=== PATIENT | male | born 1955 | race Caucasian/White ===

== ENCOUNTER 2019-09-07 10:14 | Observation (INO) | payer OTHER ==
[2019-09-07] MEDS ORDERED: Metoprolol Tartrate 5 MG/5 ML SDV IVPUSH ONE (10:41)
--- NOTE | 2019-09-07 10:42 | EDM.PDOC ---
ED HPI GENERAL MEDICAL PROBLEM - General Chief Complaint: Chest Pain Stated Complaint: CHEST PAIN Time Seen by Provider: 09/07/19 10:42 Source of Information: Reports: Patient History Limitations: Reports: No Limitations - History of Present Illness INITIAL COMMENTS - FREE TEXT/NARRATIVE: pt arrived having intermitent regular tachcardia with a rate of 170. He has chest pressure but no actual chest pain. He is mildly sob. He has a history of reflux and when he has alot of trouble he has had a rapid heart rhythm. Onset: Today, Sudden Duration: Hour(s):, Other (pt has not had any extra stress present. ) Location: Reports: Chest Associated Symptoms: Reports: Other ( rapid heart beat. ) chest Pain Score (Numeric/FACES): 0 - Related Data Allergies Allergy/AdvReac Type Severity Reaction Status Date / Time No Known Allergies Allergy Verified 09/07/19 10:38 Home Meds: Home Meds Aspirin [Lo-Dose Aspirin EC] 81 mg PO DAILY 09/07/19 [History] Esomeprazole [NexIUM] 20 mg PO DAILY 09/07/19 [History] Fexofenadine [Holli] 180 mg PO DAILY 09/07/19 [History] Losartan Potassium 50 mg PO DAILY 09/07/19 [History] Pantoprazole [ProTONIX] 40 mg PO DAILY 09/07/19 [History] gemfibroziL [Gemfibrozil] 600 mg PO DAILY 09/07/19 [History] ED ROS GENERAL - Review of Systems Review Of Systems: See Below Constitutional: Reports: Weakness, Fatigue HEENT: Reports: No Symptoms Respiratory: Reports: Shortness of Breath Cardiovascular: Reports: Palpitations, Other (pt feels like his heart is racing. ) Endocrine: Reports: No Symptoms GI/Abdominal: Reports: No Symptoms, Other (pt has a history of reflux. ) : Reports: No Symptoms Musculoskeletal: Reports: No Symptoms Skin: Reports: No Symptoms Neurological: Reports: Dizziness, Weakness, Other (no definite chest pain. ) Psychiatric: Reports: No Symptoms ED EXAM, GENERAL - Physical Exam Exam: See Below Free Text/Narrative:: pt arrived with a heart rate of 177. He did not have actual chest pain but he did feel uneasy in his chest, He was not sob. Exam Limited By: Other (pt does give a history of reflux. He feels like he has rapid heart rates when he has reflux.) General Appearance: Alert, Anxious Ears: Normal TMs Nose: Normal Inspection Throat/Mouth: Normal Inspection Head: Atraumatic Neck: Normal Inspection Respiratory/Chest: No Respiratory Distress Cardiovascular: Regular Rate, Rhythm, Tachycardia, Other (pt had a rate of 177 on arrival. He did go in and out of this. ) GI/Abdominal: Soft, Non-Tender (Male) Exam: Deferred Rectal (Males) Exam: Deferred Back Exam: Normal Inspection Extremities: Normal Inspection Neurological: Alert, Oriented, Normal Cognition Psychiatric: Anxious Course - Vital Signs Last Recorded V/S: Last Vital Signs Temp 36.8 C 09/08/19 04:00 Pulse 62 09/08/19 02:00 Resp 19 09/08/19 06:00 BP 138/86 09/08/19 06:00 Pulse Ox 95 09/08/19 06:00 - Orders/Labs/Meds Orders: Active Orders 24 hr Category Date Time Status Patient Status [ADT] Routine ADT 09/07/19 14:02 Active Ambulate [RC] QID Care 09/07/19 14:02 Active Cardiac Monitoring [RC] Q6H Care 09/07/19 14:02 Active Height and Weight [RC] DAILY Care 09/07/19 14:02 Active Intake and Output [RC] QSHIFT Care 09/07/19 14:02 Active Notify Provider Vital Signs [RC] ASDIRECTED Care 09/07/19 14:02 Active Oxygen Therapy [RC] PRN Care 09/07/19 14:02 Active Up ad Rachel [RC] ASDIRECTED Care 09/07/19 14:02 Active Up to Chair [RC] QID Care 09/07/19 14:02 Active VTE/DVT Education [RC] Per Unit Routine Care 09/07/19 14:02 Active Vital Signs [RC] Q1H Care 09/07/19 14:02 Active 2 Gram Sodium Diet [DIET] Diet 09/07/19 Lunch Active Acetaminophen [Tylenol] Med 09/07/19 14:02 Active 650 mg PO Q4H PRN Aspirin [Halfprin] Med 09/08/19 09:00 Active 81 mg PO DAILY Diltiazem IR [Cardizem] Med 09/07/19 14:00 Active 30 mg PO Q6H Diltiazem [Cardizem] 100 mg Med 09/07/19 11:30 Active Sodium Chloride 0.9% [Normal Saline] 100 ml IV TITRATE Enoxaparin [Lovenox] Med 09/07/19 16:00 Active 40 mg SUBCUT Q24H Loratadine [Claritin] Med 09/07/19 21:00 Active 10 mg PO BEDTIME Ondansetron [Zofran] Med 09/07/19 14:02 Active 4 mg IV Q4H PRN Pantoprazole [ProTONIX] Med 09/07/19 16:30 Active 40 mg PO BIDAC Sodium Chloride 0.9% [Saline Flush] Med 09/07/19 14:02 Active 10 ml FLUSH ASDIRECTED PRN gemfibroziL [Lopid] Med 09/08/19 09:00 Active 600 mg PO DAILY polyethylene glycoL 3350 [MiraLAX] Med 09/07/19 14:02 Active 17 gm PO DAILY PRN Saline Lock Insert [OM.PC] Routine Oth 09/07/19 14:02 Ordered Resuscitation Status Routine Resus Stat 09/07/19 13:19 Ordered EKG 12 Lead [EK] Routine Ther 09/07/19 10:42 Stop Req Medication Orders Acetaminophen (Tylenol) 650 mg PO Q4H PRN PRN Reason: Pain (Mild 1-3)/fever Aspirin (Halfprin) 81 mg PO DAILY ROBERTO CARLOS Diltiazem HCl (Cardizem) 30 mg PO Q6H ROBERTO CARLOS Last Admin: 09/08/19 01:26 Dose: 30 mg Documented by: Admin: 09/07/19 20:17 Dose: 30 mg Documented by: Admin: 09/07/19 14:39 Dose: 30 mg Documented by: REYNA Enoxaparin Sodium (Lovenox) 40 mg SUBCUT Q24H ROBERTO CARLOS Last Admin: 09/07/19 17:11 Dose: 40 mg Documented by: REYNA Gemfibrozil (Lopid) 600 mg PO DAILY ROBERTO CARLOS Diltiazem HCl 100 mg/ Sodium (Chloride) 100 mls @ 5 mls/hr IV TITRATE ROBERTO CARLOS; Protocol Last Titration: 09/08/19 04:26 Dose: 5 mg/hr, 5 mls/hr Documented by: Admin: 09/08/19 01:26 Dose: 10 mg/hr, 10 mls/hr Documented by: Titration: 09/08/19 01:26 Dose: 10 mg/hr, 10 mls/hr Documented by: Titration: 09/07/19 23:46 Dose: 10 mg/hr, 10 mls/hr Documented by: Titration: 09/07/19 23:19 Dose: 5 mg/hr, 5 mls/hr Documented by: Titration: 09/07/19 22:05 Dose: 0 mg/hr, 0 mls/hr Documented by: Titration: 09/07/19 16:20 Dose: 5 mg/hr, 5 mls/hr Documented by: Titration: 09/07/19 13:09 Dose: 10 mg/hr, 10 mls/hr Documented by: Admin: 09/07/19 11:42 Dose: 5 mg/hr, 5 mls/hr Documented by: [id number] Loratadine (Claritin) 10 mg PO BEDTIME [facility] Last Admin: 09/07/19 20:17 Dose: 10 mg Documented by: AIMEE Ondansetron HCl (Zofran) 4 mg IV Q4H PRN PRN Reason: Nausea/Vomiting Pantoprazole Sodium (Protonix) 40 mg PO BIDAC [facility] Last Admin: 09/07/19 17:11 Dose: 40 mg Documented by: REYNA Polyethylene Glycol (Miralax) 17 gm PO DAILY PRN PRN Reason: Constipation Sodium Chloride (Saline Flush) 10 ml FLUSH ASDIRECTED PRN PRN Reason: Keep Vein Open Labs: Laboratory Tests 09/07/19 09/07/19 09/07/19 Range/Units 10:39 10:47 10:47 WBC 6.2 (4.5-11.0) K/uL RBC 5.92 H (4.30-5.90) M/uL Hgb 16.9 H (12.0-15.0) g/dL Hct 49.5 (40.0-54.0) % MCV 84 (80-98) fL MCH 29 (27-31) pg MCHC 34 (32-36) % Plt Count 222 (150-400) K/uL Neut % (Auto) 35 L (36-66) % Lymph % (Auto) 53 H (24-44) % Borden % (Auto) 11 H (2-6) % Eos % (Auto) 1 L (2-4) % Baso % (Auto) 1 (0-1) % Sodium 143 (140-148) mmol/L Potassium 4.7 (3.6-5.2) mmol/L Chloride 106 (100-108) mmol/L Carbon Dioxide 27 (21-32) mmol/L Anion Gap 10.2 (5.0-14.0) mmol/L BUN 24 H (7-18) mg/dL Creatinine 1.4 H (0.8-1.3) mg/dL Est Cr Clr Drug Dosing 60.24 mL/min Estimated GFR (MDRD) 51 L (>60) Glucose 111 H (74-106) mg/dL Calcium 8.8 (8.5-10.1) mg/dL Magnesium (1.8-2.4) mg/dL Total Bilirubin 0.5 (0.2-1.0) mg/dL AST 39 H (15-37) U/L ALT 49 (12-78) U/L Alkaline Phosphatase 59 (46-116) U/L Troponin I < 0.017 (0.000-0.056) ng/mL Total Protein 7.4 (6.4-8.2) g/dL Albumin 4.2 (3.4-5.0) g/dL Globulin 3.2 (2.3-3.5) g/dL Albumin/Globulin Ratio 1.3 (1.2-2.2) TSH, Ultra Sensitive (0.358-3.740) uIU/mL Urine Opiates Screen (NEGATIVE) Ur Oxycodone Screen (NEGATIVE) Urine Methadone Screen (NEGATIVE) Ur Propoxyphene Screen (NEGATIVE) Ur Barbiturates Screen (NEGATIVE) Ur Tricyclics Screen (NEGATIVE) Ur Phencyclidine Scrn (NEGATIVE) Ur Amphetamine Screen (NEGATIVE) U Methamphetamines Scrn (NEGATIVE) Urine MDMA Screen (NEGATIVE) U Benzodiazepines Scrn (NEGATIVE) U Cocaine Metab Screen (NEGATIVE) U Marijuana (THC) Screen (NEGATIVE) 09/07/19 09/07/19 09/07/19 Range/Units 10:47 11:40 12:07 WBC (4.5-11.0) K/uL RBC (4.30-5.90) M/uL Hgb (12.0-15.0) g/dL Hct (40.0-54.0) % MCV (80-98) fL MCH (27-31) pg MCHC (32-36) % Plt Count (150-400) K/uL Neut % (Auto) (36-66) % Lymph % (Auto) (24-44) % Borden % (Auto) (2-6) % Eos % (Auto) (2-4) % Baso % (Auto) (0-1) % Sodium (140-148) mmol/L Potassium (3.6-5.2) mmol/L Chloride (100-108) mmol/L Carbon Dioxide (21-32) mmol/L Anion Gap (5.0-14.0) mmol/L BUN (7-18) mg/dL Creatinine (0.8-1.3) mg/dL Est Cr Clr Drug Dosing mL/min Estimated GFR (MDRD) (>60) Glucose (74-106) mg/dL Calcium (8.5-10.1) mg/dL Magnesium 2.5 H (1.8-2.4) mg/dL Total Bilirubin (0.2-1.0) mg/dL AST (15-37) U/L ALT (12-78) U/L Alkaline Phosphatase (46-116) U/L Troponin I (0.000-0.056) ng/mL Total Protein (6.4-8.2) g/dL Albumin (3.4-5.0) g/dL Globulin (2.3-3.5) g/dL Albumin/Globulin Ratio (1.2-2.2) TSH, Ultra Sensitive 3.527 (0.358-3.740) uIU/mL Urine Opiates Screen Negative (NEGATIVE) Ur Oxycodone Screen Negative (NEGATIVE) Urine Methadone Screen Negative (NEGATIVE) Ur Propoxyphene Screen Negative (NEGATIVE) Ur Barbiturates Screen Negative (NEGATIVE) Ur Tricyclics Screen Presumptive positive H (NEGATIVE) Ur Phencyclidine Scrn Negative (NEGATIVE) Ur Amphetamine Screen Negative (NEGATIVE) U Methamphetamines Scrn Presumptive positive H (NEGATIVE) Urine MDMA Screen Negative (NEGATIVE) U Benzodiazepines Scrn Negative (NEGATIVE) U Cocaine Metab Screen Negative (NEGATIVE) U Marijuana (THC) Screen Negative (NEGATIVE) Meds: Medications Generic Name Dose Route Start Last Admin Trade Name [place] PRN Reason Stop Dose Admin Acetaminophen 650 mg 09/07/19 14:02 Tylenol PO Q4H PRN Pain (Mild 1-3)/fever Aspirin 81 mg 09/08/19 09:00 Halfprin PO DAILY ROBERTO CARLOS Diltiazem HCl 30 mg 09/07/19 14:00 09/08/19 01:26 Cardizem PO 30 mg Q6H ROBERTO CARLOS Administration Enoxaparin Sodium 40 mg 09/07/19 16:00 09/07/19 17:11 Lovenox SUBCUT 40 mg Q24H ROBERTO CARLOS Administration Gemfibrozil 600 mg 09/08/19 09:00 Lopid PO DAILY ROBERTO CARLOS Diltiazem HCl 100 mg/ Sodium 100 mls @ 5 mls/hr 09/07/19 11:30 09/08/19 04:26 Chloride IV 5 mg/hr TITRATE ROBERTO CARLOS 5 mls/hr Titration Protocol 5 MG/HR Loratadine 10 mg 09/07/19 21:00 09/07/19 20:17 Claritin PO 10 mg BEDTIME ROBERTO CARLOS Administration Ondansetron HCl 4 mg 09/07/19 14:02 Zofran IV Q4H PRN Nausea/Vomiting Pantoprazole Sodium 40 mg 09/07/19 16:30 09/07/19 17:11 Protonix PO 40 mg BIDAC ROBERTO CARLOS Administration Polyethylene Glycol 17 gm 09/07/19 14:02 Miralax PO DAILY PRN Constipation Sodium Chloride 10 ml 09/07/19 14:02 Saline Flush FLUSH ASDIRECTED PRN Keep Vein Open Discontinued Medications Generic Name Dose Route Start Last Admin Trade Name [place] PRN Reason Stop Dose Admin Diltiazem HCl 10 mg 09/07/19 11:25 09/07/19 11:33 Diltiazem IVPUSH 09/07/19 11:26 10 mg ONETIME ONE Administration Diltiazem HCl Confirm 09/08/19 00:06 09/08/19 01:26 Diltiazem Administered 09/08/19 00:07 Not Given Dose 25 mg .ROUTE .STK-MED ONE Sodium Chloride 1,000 mls @ 250 mls/hr 09/07/19 10:45 09/07/19 10:49 Normal Saline IV 250 mls/hr ASDIRECTED ROBERTO CARLOS Administration Sodium Chloride 1,000 mls @ 999 mls/hr 09/07/19 12:00 09/07/19 13:14 Normal Saline IV 999 mls/hr ASDIRECTED ROBERTO CARLOS Administration Metoprolol Tartrate 5 mg 09/07/19 10:41 09/07/19 10:48 Lopressor IVPUSH 09/07/19 10:42 5 mg ONETIME ONE Administration Pantoprazole Sodium 40 mg 09/07/19 10:46 09/07/19 10:58 Protonix Iv IVPUSH 09/07/19 10:47 40 mg ONETIME ONE Administration - Re-Assessments/Exams Free Text/Narrative Re-Assessment/Exam: 09/07/19 11:59 pt was gven lopressor 5 mg iv to see if that would stablize the rhythm and it did not. He was then given cardizem 10 mg iv and a drip was hung and he is doing much better. He has a normal mag. He does appear dry and he will be hydrated. Dr Dallas will admit and observe the pt. b Departure - Departure Time of Disposition: 04:00 Disposition: Admitted As Inpatient 65 Condition: Fair Clinical Impression: Cardiac arrhythmia, Dehydration - My Orders Last 24 Hours: My Active Orders 09/07/19 10:42 EKG 12 Lead [EK] Routine 09/07/19 11:30 Diltiazem [Cardizem] 100 mg Sodium Chloride 0.9% [Normal Saline] 100 ml IV TITRATE - Assessment/Plan Last 24 Hours: My Active Orders 09/07/19 10:42 EKG 12 Lead [EK] Routine 09/07/19 11:30 Diltiazem [Cardizem] 100 mg Sodium Chloride 0.9% [Normal Saline] 100 ml IV TITRATE
[2019-09-07] MEDS ORDERED: Sodium Chloride 0.9% 1,000 ML IV SCH ×2 (10:45→12:00)
[2019-09-07] MEDS ORDERED: Pantoprazole 40 MG Vial IVPUSH ONE (10:46)
[2019-09-07] MEDS ORDERED: Diltiazem 25 MG/5 ML SDV IVPUSH ONE (11:25)
[2019-09-07] MEDS: Diltiazem 100 MG in Sodium Chloride 0.9% 100 ML IV SCH (11:42)
--- NOTE | 2019-09-07 12:01 | CR ---
CHEST: 09/07/2019 11:21 AM CLINICAL HISTORY:Tachycardia COMPARISON:None FINDINGS: The heart size, pulmonary vascularity and hilar structures are normal. No infiltrate effusion or pneumothorax is seen. IMPRESSION: No acute cardiopulmonary process.
--- NOTE | 2019-09-07 13:28 | PCM.HP.2 ---
H&P History of Present Illness - General Date of Service: 09/07/19 Admit Problem/Dx: Admission Diagnosis/Problem Admission Diagnosis/Problem Tachycardia Source of Information: Patient, Family, Provider, RN Notes Reviewed History Limitations: Reports: No Limitations - History of Present Illness Initial Comments - Free Text/Narative: Mr. 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 He has a past history of episodic rapid heart rate, but this has not bothered him much over the past few months. He is in [place] vacationing over the past 2-1/2 weeks and has noted increased difficulty with esophageal reflux. In the past he has associated the reflux with episodes of tachycardia. Episodes of occurred over the past few days and he is noted symptoms of decreased exercise tolerance, shortness of breath, weakness, and lightheadedness. Because of persistent symptoms he presented to the emergency department today. On presentation was noted to be in a narrow complex tachycardia with a rate of 170. This appeared to represent an AV kenisha reentrant tachycardia. He received beta-jack initially which did not provide any improvement. He was then given a dose of IV diltiazem and started on a continuous infusion of diltiazem with good result and conversion to sinus rhythm. And in sinus rhythm since that time. He denies any symptoms of chest pain but has experienced chest pressure. He did have a urinary angiogram within the past few years that showed only very mild coronary artery disease. Initial troponin level is within normal range. - Related Data Allergies/Adverse Reactions: Allergies Allergy/AdvReac Type Severity Reaction Status Date / Time No Known Allergies Allergy Verified 09/07/19 10:38 Home Medications: Home Meds Aspirin [Lo-Dose Aspirin EC] 81 mg PO DAILY 09/07/19 [History] Esomeprazole [NexIUM] 20 mg PO DAILY 09/07/19 [History] Fexofenadine [Holli] 180 mg PO DAILY 09/07/19 [History] Losartan Potassium 50 mg PO DAILY 09/07/19 [History] Pantoprazole [ProTONIX] 40 mg PO DAILY 09/07/19 [History] gemfibroziL [Gemfibrozil] 600 mg PO DAILY 09/07/19 [History] Past Medical History Cardiovascular History: Reports: High Cholesterol, Hypertension - Past Surgical History Other Cardiovascular Surgeries/Procedures: cardiac cath GI Surgical History: Reports: Hernia Repair/Other Male Surgical History: Reports: Kidney Stone Extraction, Lithotripsy ([facility]) Other Male Surgeries/Procedures: fistual repair Social & Family History - Tobacco Use Smoking Status *Q: Never Smoker H&P Review of Systems - Review of Systems: Review Of Systems: See Below General: Reports: Weakness, Fatigue HEENT: Reports: No Symptoms Pulmonary: Reports: Shortness of Breath. Denies: Wheezing, Pleuritic Chest Pain, Cough, Sputum, Hemoptysis Cardiovascular: Reports: Palpitations, Dyspnea on Exertion, Lightheadedness. Denies: Chest Pain, Orthopnea, PND, Edema, Syncope Gastrointestinal: Reports: No Symptoms Genitourinary: Reports: No Symptoms Musculoskeletal: Reports: No Symptoms Skin: Reports: No Symptoms Psychiatric: Reports: No Symptoms Neurological: Reports: No Symptoms Hematologic/Lymphatic: Reports: No Symptoms Immunologic: Reports: No Symptoms Exam - Exam Exam: See Below - Vital Signs Vital Signs: Last Vital Signs Temp 97.6 F 09/07/19 10:41 Pulse 151 H 09/07/19 11:24 Resp 13 09/07/19 11:24 BP 124/77 09/07/19 11:24 Pulse Ox 93 L 09/07/19 11:24 Weight: 240 lb - Exam Quality Assessment: DVT Prophylaxis General: Alert, Oriented, Cooperative, Mild Distress HEENT: Conjunctiva Clear, Hearing Intact, Mucosa Moist & Mears, Normal Nasal Septum, Posterior Pharynx Clear, Pupils Equal Neck: Supple, Trachea Midline, +2 Carotid Pulse wo Bruit Lungs: Clear to Auscultation, Normal Respiratory Effort, Decreased Breath Sounds Cardiovascular: Regular Rate, Regular Rhythm, Normal S1, Normal S2. No: Systolic Murmur, Diastolic Murmur GI/Abdominal Exam: Soft, Non-Tender, No Organomegaly, No Distention Back Exam: Normal Inspection, Full Range of Motion Extremities: Non-Tender, No Pedal Edema Skin: Warm, Dry, Intact Neurological: Cranial Nerves Intact, Strength Equal Bilateral, Normal Speech, Normal Tone, Sensation Intact. No: Focal Deficit Neuro Extensive - Mental Status: Alert, Oriented x3, Normal Mood/Affect, Normal Cognition, Memory Intact - Patient Data Lab Results Last 24 hrs: Laboratory Results - last 24 hr 09/07/19 09/07/19 09/07/19 Range/Units 10:39 10:47 10:47 WBC 6.2 (4.5-11.0) K/uL RBC 5.92 H (4.30-5.90) M/uL Hgb 16.9 H (12.0-15.0) g/dL Hct 49.5 (40.0-54.0) % MCV 84 (80-98) fL MCH 29 (27-31) pg MCHC 34 (32-36) % Plt Count 222 (150-400) K/uL Neut % (Auto) 35 L (36-66) % Lymph % (Auto) 53 H (24-44) % Wells % (Auto) 11 H (2-6) % Eos % (Auto) 1 L (2-4) % Baso % (Auto) 1 (0-1) % Sodium 143 (140-148) mmol/L Potassium 4.7 (3.6-5.2) mmol/L Chloride 106 (100-108) mmol/L Carbon Dioxide 27 (21-32) mmol/L Anion Gap 10.2 (5.0-14.0) mmol/L BUN 24 H (7-18) mg/dL Creatinine 1.4 H (0.8-1.3) mg/dL Est Cr Clr Drug Dosing 60.24 mL/min Estimated GFR (MDRD) 51 L (>60) Glucose 111 H (74-106) mg/dL Calcium 8.8 (8.5-10.1) mg/dL Magnesium (1.8-2.4) mg/dL Total Bilirubin 0.5 (0.2-1.0) mg/dL AST 39 H (15-37) U/L ALT 49 (12-78) U/L Alkaline Phosphatase 59 (46-116) U/L Troponin I < 0.017 (0.000-0.056) ng/mL Total Protein 7.4 (6.4-8.2) g/dL Albumin 4.2 (3.4-5.0) g/dL Globulin 3.2 (2.3-3.5) g/dL Albumin/Globulin Ratio 1.3 (1.2-2.2) TSH, Ultra Sensitive (0.358-3.740) uIU/mL Urine Opiates Screen (NEGATIVE) Ur Oxycodone Screen (NEGATIVE) Urine Methadone Screen (NEGATIVE) Ur Propoxyphene Screen (NEGATIVE) Ur Barbiturates Screen (NEGATIVE) Ur Tricyclics Screen (NEGATIVE) Ur Phencyclidine Scrn (NEGATIVE) Ur Amphetamine Screen (NEGATIVE) U Methamphetamines Scrn (NEGATIVE) Urine MDMA Screen (NEGATIVE) U Benzodiazepines Scrn (NEGATIVE) U Cocaine Metab Screen (NEGATIVE) U Marijuana (THC) Screen (NEGATIVE) 09/07/19 09/07/19 09/07/19 Range/Units 10:47 11:40 12:07 WBC (4.5-11.0) K/uL RBC (4.30-5.90) M/uL Hgb (12.0-15.0) g/dL Hct (40.0-54.0) % MCV (80-98) fL MCH (27-31) pg MCHC (32-36) % Plt Count (150-400) K/uL Neut % (Auto) (36-66) % Lymph % (Auto) (24-44) % Wells % (Auto) (2-6) % Eos % (Auto) (2-4) % Baso % (Auto) (0-1) % Sodium (140-148) mmol/L Potassium (3.6-5.2) mmol/L Chloride (100-108) mmol/L Carbon Dioxide (21-32) mmol/L Anion Gap (5.0-14.0) mmol/L BUN (7-18) mg/dL Creatinine (0.8-1.3) mg/dL Est Cr Clr Drug Dosing mL/min Estimated GFR (MDRD) (>60) Glucose (74-106) mg/dL Calcium (8.5-10.1) mg/dL Magnesium 2.5 H (1.8-2.4) mg/dL Total Bilirubin (0.2-1.0) mg/dL AST (15-37) U/L ALT (12-78) U/L Alkaline Phosphatase (46-116) U/L Troponin I (0.000-0.056) ng/mL Total Protein (6.4-8.2) g/dL Albumin (3.4-5.0) g/dL Globulin (2.3-3.5) g/dL Albumin/Globulin Ratio (1.2-2.2) TSH, Ultra Sensitive 3.527 (0.358-3.740) uIU/mL Urine Opiates Screen Negative (NEGATIVE) Ur Oxycodone Screen Negative (NEGATIVE) Urine Methadone Screen Negative (NEGATIVE) Ur Propoxyphene Screen Negative (NEGATIVE) Ur Barbiturates Screen Negative (NEGATIVE) Ur Tricyclics Screen Presumptive positive H (NEGATIVE) Ur Phencyclidine Scrn Negative (NEGATIVE) Ur Amphetamine Screen Negative (NEGATIVE) U Methamphetamines Scrn Presumptive positive H (NEGATIVE) Urine MDMA Screen Negative (NEGATIVE) U Benzodiazepines Scrn Negative (NEGATIVE) U Cocaine Metab Screen Negative (NEGATIVE) U Marijuana (THC) Screen Negative (NEGATIVE) Result Diagrams: 09/07/19 10:39 09/07/19 10:47 Sepsis Event Note - Evaluation Sepsis Screening Result: No Definite Risk - Focused Exam Vital Signs: Vital Signs Temp Pulse Pulse Resp BP BP Pulse Ox 09/07/19 11:24 151 H 13 124/77 93 L 09/07/19 10:48 172 H 119/71 09/07/19 10:46 167 H 13 119/71 95 09/07/19 10:41 97.6 F 170 H 14 119/71 100 Date Exam was Performed: 09/07/19 Time Exam was Performed: 13:22 *Q Meaningful Use (ADM) - VTE Risk Assess *Q Each Risk Factor Represents 1 Point: Obesity ( BMI > 25 kg/m2) Total Score 1 Point Risk Factors: 1 Each Risk Factor Represents 2 Points: Age 60 - 74 Years Total Score 2 Point Risk Factors: 2 Each Risk Factor Represents 3 Points: None Total Score 3 Point Risk Factors: 0 Each Risk Factor Represents 5 Points: None Total Score 5 Point Risk Factors: 0 Venous Thromboembolism Risk Factor Score *Q: 3 Problem List Initiated/Reviewed/Updated: Yes Orders Last 24hrs: Active Orders 24 hr Category Date Time Status Patient Status Manage Transfer [TRANSFER] Routine ADT 09/07/19 13:16 Active EKG Documentation Completion [RC] ASDIRECTED Care 09/07/19 10:42 Active Diltiazem [Cardizem] 100 mg Med 09/07/19 11:30 Active Sodium Chloride 0.9% [Normal Saline] 100 ml IV TITRATE Sodium Chloride 0.9% [Normal Saline] 1,000 ml Med 09/07/19 10:45 Active IV ASDIRECTED Sodium Chloride 0.9% [Normal Saline] 1,000 ml Med 09/07/19 12:00 Active IV ASDIRECTED Resuscitation Status Routine Resus Stat 09/07/19 13:19 Ordered EKG 12 Lead [EK] Routine Ther 09/07/19 10:42 Ordered Medication Orders Sodium Chloride (Normal Saline) 1,000 mls @ 250 mls/hr IV ASDIRECTED ROBERTO CARLOS Last Admin: 09/07/19 10:49 Dose: 250 mls/hr Documented by: ALEXI Diltiazem HCl 100 mg/ Sodium (Chloride) 100 mls @ 5 mls/hr IV TITRATE ROBERTO CARLOS; Protocol Last Titration: 09/07/19 13:09 Dose: 10 mg/hr, 10 mls/hr Documented by: Admin: 09/07/19 11:42 Dose: 5 mg/hr, 5 mls/hr Documented by: MICHAEL Sodium Chloride (Normal Saline) 1,000 mls @ 999 mls/hr IV ASDIRECTED ROBERTO CARLOS Last Admin: 09/07/19 13:14 Dose: 999 mls/hr Documented by: ALEXI Assessment/Plan Comment:: ASSESSMENT AND PLAN AV KENISHA REENTRANT TACHYCARDIA-history of episodic rapid heart rate in the past although not for some time. In the past as well as this time seems to be associated with worsening of his esophageal reflux. -Continue IV diltiazem continuous infusion -Transition to oral diltiazem 30 mg every 6 hours -Transition to long-acting oral diltiazem in a.m. ESOPHAGEAL REFLUX -Increase oral Protonix to 40 mg twice daily MAINTENANCE ISSUES -DVT prophylaxis; Lovenox 40 mg subcu daily -GI prophylaxis; Protonix as above -Valenzuela catheter; not indicated -Nutrition; 2 g sodium diet -Nicotine dependence; not required CODE STATUS-FULL CODE ADMISSION STATUS-this patient will be admitted to observation status, expect no more than a one night hospital stay for evaluation and management of problems as outlined above. DISPOSITION-anticipate discharge to home after the hospital stay. PRIMARY CARE PROVIDER-he is from [place] and receives his primary health care there - Mortality Measure Prognosis:: Good
[2019-09-07] MEDS ORDERED: Polyethylene Glycol 3350 Powder 17 GM Packet PO PRN (14:02)
[2019-09-07] MEDS ORDERED: Acetaminophen 325 MG Tab PO PRN (14:02)
[2019-09-07] MEDS ORDERED: Ondansetron 4 MG/2 ML SDV IV PRN (14:02)
[2019-09-07] MEDS ORDERED: Sodium Chloride 0.9% 10 ML Syringe FLUSH PRN (14:02)
[2019-09-07] MEDS: Diltiazem IR 30 MG Tab PO SCH ×2 (14:39→20:17)
[2019-09-07] MEDS ORDERED: Enoxaparin 40 MG/0.4 ML Syringe SUBCUT SCH (16:00)
[2019-09-07] MEDS: Pantoprazole 40 MG Tab.CR PO SCH (17:11)
[2019-09-07] MEDS ORDERED: Loratadine 10 MG Tab PO SCH (21:00)
[2019-09-08] MEDS ORDERED: Diltiazem 25 MG/5 ML SDV ONE (00:06)
[2019-09-08] MEDS: Diltiazem 100 MG in Sodium Chloride 0.9% 100 ML IV SCH (01:26)
[2019-09-08] MEDS: Diltiazem IR 30 MG Tab PO SCH ×2 (01:26→07:39)
[2019-09-08] MEDS: Pantoprazole 40 MG Tab.CR PO SCH (07:39)
[2019-09-08] MEDS: Gemfibrozil 600 MG Tab PO SCH ×2 (07:40→09:05)
[2019-09-08] MEDS: Aspirin 81 MG Tab.EC PO SCH ×2 (07:40→09:05)
[2019-09-08] MEDS ORDERED: Diltiazem 180 MG Cap.CD PO SCH (09:00)
--- NOTE | 2019-09-08 12:16 | PCM.DCSUM1 ---
Discharge Summary - Hospital Course Brief History: Mr. Dyer is a 63-year-old gentleman who was admitted to observation status through the emergency department with weakness, shortness of breath, lightheadedness, secondary to paroxysmal AV kenisha reentrant tachycardia. - Discharge Data Discharge Date: 09/08/19 Discharge Disposition: Home, Self-Care 01 Condition: Fair - Referral to Home Health Primary Care Physician: PCP None - Discharge Diagnosis/Problem(s) (1) Atrioventricular kenisha re-entry tachycardia SNOMED Code(s): 924956123, [id number], [id number] ICD Code: I47.1 - SUPRAVENTRICULAR TACHYCARDIA Status: Acute Current Visit: Yes - Patient Summary/Data Hospital Course: Mr. 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 He has a past history of episodic rapid heart rate, but this has not bothered him much over the past few months. He is in [place] [facility] over the past 2-1/2 weeks and has noted increased difficulty with esophageal reflux. In the past he has associated the reflux with episodes of tachycardia. Episodes of occurred over the past few days and he has noted symptoms of decreased exercise tolerance, shortness of breath, weakness, and lightheadedness. Because of persistent symptoms he presented to the emergency department. On presentation was noted to be in a narrow complex tachycardia with a rate of 170. This appeared to represent an AV kenisha reentrant tachycardia. He received beta-jack initially which did not provide any improvement. He was then given a dose of IV diltiazem and started on a continuous infusion of diltiazem with good result and conversion to sinus rhythm. He has remained in sinus rhythm since that time. He denies any s ymptoms of chest pain but has experienced chest pressure. He did have a coronary angiogram within the past few years that showed only very mild coronary artery disease. Troponin level was within normal range. On admission he was continued on the continuous IV infusion of diltiazem. During this period of time he was started on oral diltiazem 30 mg every 6 hours. Following morning this was transitioned to long-acting oral diltiazem 180 mg daily. He was taken off of the IV diltiazem infusion and over the next several hours remained in sinus rhythm with good rate control. He will be discharged home with long- acting diltiazem 180 mg daily. His losartan will be held because of the addition of diltiazem to current regimen. His dose of Protonix was increased to 40 mg twice daily because of his recent difficulty with esophageal reflux. He will remain on the increased dose until he is able to see his primary care provider for follow-up. Records will be copied for the patient to bring with him back to [place]. Activity will be as tolerated and he will resume his usual diet. Follow-up appointment will be made with his primary care provider within 1 week. Consider referral to EP cardiology for further evaluation and management of his tachycardia. - Patient Instructions Diet: Usual Diet as Tolerated Diet, Other: Decrease caffeine intake Activity: As Tolerated Other/Special Instructions: Schedule follow-up appointment with primary care provider within 1 week. - Discharge Plan *PRESCRIPTION DRUG MONITORING PROGRAM REVIEWED*: Not Applicable *COPY OF PRESCRIPTION DRUG MONITORING REPORT IN PATIENT SILVERIO: Not Applicable Prescriptions/Med Rec: Diltiazem HCl [Diltiazem 24Hr Cd] 180 mg PO DAILY #30 cap.er.24h Pantoprazole [ProTONIX] 40 mg PO BIDAC #10 tab.cr Home Medications: Home Meds Aspirin [Lo-Dose Aspirin EC] 81 mg PO DAILY 09/07/19 [History] Fexofenadine [Holli] 180 mg PO DAILY 09/07/19 [History] gemfibroziL [Gemfibrozil] 600 mg PO DAILY 09/07/19 [History] Diltiazem HCl [Diltiazem 24Hr Cd] 180 mg PO DAILY #30 cap.er.24h 09/08/19 [Rx] Pantoprazole [ProTONIX] 40 mg PO BIDAC #10 tab.cr 09/08/19 [Rx] - Discharge Summary/Plan Comment DC Time >30 min.: No - Patient Data Vitals - Most Recent: Last Vital Signs Temp 96.6 F L 09/08/19 07:48 Pulse 65 09/08/19 11:00 Resp 19 09/08/19 11:00 BP 132/82 09/08/19 11:00 Pulse Ox 95 09/08/19 11:00 Weight - Most Recent: 246 lb I&O - Last 24 hours: Intake & Output 09/07/19 09/08/19 09/08/19 22:59 06:59 14:59 Intake Total 1319 655 Output Total 886 4950 400 Balance 439 995 -400 Lab Results - Last 24 hrs: Laboratory Results - last 24 hr 09/07/19 09/08/19 09/08/19 Range/Units 12:07 05:02 09:21 Sodium 140 (140-148) mmol/L Potassium 4.2 (3.6-5.2) mmol/L Chloride 103 (100-108) mmol/L Carbon Dioxide 27 (21-32) mmol/L Anion Gap 9.6 (5.0-14.0) mmol/L BUN 19 H (7-18) mg/dL Creatinine 1.2 (0.8-1.3) mg/dL Est Cr Clr Drug Dosing 70.28 mL/min Estimated GFR (MDRD) > 60 (>60) Glucose 128 H (74-106) mg/dL Calcium 8.5 (8.5-10.1) mg/dL Magnesium 2.1 (1.8-2.4) mg/dL Urine Opiates Screen Negative Negative (NEGATIVE) Ur Oxycodone Screen Negative Negative (NEGATIVE) Urine Methadone Screen Negative Negative (NEGATIVE) Ur Propoxyphene Screen Negative Negative (NEGATIVE) Ur Barbiturates Screen Negative Negative (NEGATIVE) Ur Tricyclics Screen Presumptive positive H Positive H (NEGATIVE) Ur Phencyclidine Scrn Negative Negative (NEGATIVE) Ur Amphetamine Screen Negative Negative (NEGATIVE) U Methamphetamines Scrn Presumptive positive H Negative (NEGATIVE) Urine MDMA Screen Negative Negative (NEGATIVE) U Benzodiazepines Scrn Negative Negative (NEGATIVE) U Cocaine Metab Screen Negative Negative (NEGATIVE) U Marijuana (THC) Screen Negative Negative (NEGATIVE) Med Orders - Current: Current Medications Acetaminophen (Tylenol) 650 mg PO Q4H PRN PRN Reason: Pain (Mild 1-3)/fever Aspirin (Halfprin) 81 mg PO DAILY [facility] Last Admin: 09/08/19 09:05 Dose: Not Given Documented by: Diltiazem HCl (Cardizem Cd) 180 mg PO DAILY [facility] Last Admin: 09/08/19 08:39 Dose: 180 mg Documented by: Enoxaparin Sodium (Lovenox) 40 mg SUBCUT Q24H [facility] Last Admin: 09/07/19 17:11 Dose: 40 mg Documented by: Gemfibrozil (Lopid) 600 mg PO DAILY [facility] Last Admin: 09/08/19 09:05 Dose: Not Given Documented by: Diltiazem HCl 100 mg/ Sodium (Chloride) 100 mls @ 5 mls/hr IV TITRATE [facility]; Protocol Last Titration: 09/08/19 08:50 Dose: 0 mg/hr, 0 mls/hr Documented by: Loratadine (Claritin) 10 mg PO BEDTIME [facility] Last Admin: 09/07/19 20:17 Dose: 10 mg Documented by: Ondansetron HCl (Zofran) 4 mg IV Q4H PRN PRN Reason: Nausea/Vomiting Pantoprazole Sodium (Protonix) 40 mg PO BIDAC [facility] Last Admin: 09/08/19 07:39 Dose: 40 mg Documented by: Polyethylene Glycol (Miralax) 17 gm PO DAILY PRN PRN Reason: Constipation Sodium Chloride (Saline Flush) 10 ml FLUSH ASDIRECTED PRN PRN Reason: Keep Vein Open Discontinued Medications Diltiazem HCl (Diltiazem) 10 mg IVPUSH ONETIME ONE Stop: 09/07/19 11:26 Last Admin: 09/07/19 11:33 Dose: 10 mg Documented by: Diltiazem HCl (Cardizem) 30 mg PO Q6H [facility] Last Admin: 09/08/19 07:39 Dose: 30 mg Documented by: Diltiazem HCl (Diltiazem) Confirm Administered Dose 25 mg .ROUTE .STK-MED ONE Stop: 09/08/19 00:07 Last Admin: 09/08/19 01:26 Dose: Not Given Documented by: Sodium Chloride (Normal Saline) 1,000 mls @ 250 mls/hr IV ASDIRECTED [facility] Last Admin: 09/07/19 10:49 Dose: 250 mls/hr Documented by: Sodium Chloride (Normal Saline) 1,000 mls @ 999 mls/hr IV ASDIRECTED [facility] Last Admin: 09/07/19 13:14 Dose: 999 mls/hr Documented by: Metoprolol Tartrate (Lopressor) 5 mg IVPUSH ONETIME ONE Stop: 09/07/19 10:42 Last Admin: 09/07/19 10:48 Dose: 5 mg Documented by: Pantoprazole Sodium (Protonix Iv) 40 mg IVPUSH ONETIME ONE Stop: 09/07/19 10:47 Last Admin: 09/07/19 10:58 Dose: 40 mg Documented by: - Exam General: Reports: Alert, Oriented, Cooperative, No Acute Distress Lungs: Reports: Clear to Auscultation, Normal Respiratory Effort Cardiovascular: Reports: Regular Rate, Regular Rhythm, No Murmurs GI/Abdominal Exam: Soft, Non-Tender, No Organomegaly, No Distention
== END 2019-09-08 13:25 | disposition home or self-care (01) ==
LOC: JP.ED 10:14 → JP.ICU 13:40 → INTOOBSV 09-08 12:30 → OBSVTOIN 09-08 12:30
PROVIDERS: ADMIT Hospitalist; ATTEND Hospitalist
DX: I47.1 Supraventricular tachycardia (principal); E86.0 Dehydration; E78.00 Pure hypercholesterolemia, unspecified; I10 Essential (primary) hypertension; K21.9 Gastro-esophageal reflux disease without esophagitis; Z79.82 Long term (current) use of aspirin; Z79.899 Other long term (current) drug therapy
CPT/HCPCS: 36415; 71045; 80048; 80053; 80305; 83735; 84443; 84484; 85025; 93005; A9270; C9113; J1650; J3490; J7030; J7050

== ENCOUNTER 2023-08-25 06:38 | Emergency (ER) | payer MEDICARE, OTHER ==
[2023-08-25] MEDS: Methocarbamol 500 MG Tab PO ONE (08:39)
== END 2023-08-25 08:56 | disposition home or self-care (01) ==
LOC: JP.ED 06:38
DX: M54.50 Low back pain, unspecified (principal); I10 Essential (primary) hypertension; E78.00 Pure hypercholesterolemia, unspecified; E66.9 Obesity, unspecified; Z86.16 Personal history of COVID-19; Z79.82 Long term (current) use of aspirin; Z79.899 Other long term (current) drug therapy; Z68.31 Body mass index [BMI] 31.0-31.9, adult
CPT/HCPCS: 73502-26-RT; 73502-RT; 99283; A9270-GY